=== PATIENT | female | born 1980 | race Caucasian/White ===

== ENCOUNTER 2018-06-17 12:47 | Emergency (ER) | payer MEDICAID ==
[2018-06-17 12:52] VITALS: BP 143/99
--- NOTE | 2018-06-17 13:55 | ER Document Report ---
ED Medical Screen (RME) - General Chief Complaint: Abdominal Pain Stated Complaint: STOMACH PAIN Time Seen by Provider: 06/17/18 13:50 TRAVEL OUTSIDE OF THE [place] IN LAST 30 DAYS: No - HPI Patient complains to provider of: Spotting with positive test Past Medical History Renal/ Medical History: Denies: Hx Peritoneal Dialysis Physical Exam - Vital signs Vitals: Temp Pulse Resp BP Pulse Ox 99.2 F 85 14 143/99 H 100 06/17/18 12:50 06/17/18 12:50 06/17/18 12:50 06/17/18 12:50 06/17/18 12:50 Course - Re-evaluation Re-evalutation: 06/17/18 13:54 This 37-year-old female presents for evaluation of and of unknown location, she has been seen twice by her fly maker with 2 ultrasounds transabdominally which did not demonstrate an obvious intrauterine . She continue to take test again which were positive today. Plan is for her to undergo evaluation via transvaginal ultrasound, will obtain hCG quantitative as well as Rh status. Patient's last menstrual period was in mid April. - Vital Signs Vital signs: Temp Pulse Resp BP Pulse Ox 99.2 F 85 14 143/99 H 100 06/17/18 12:50 06/17/18 12:50 06/17/18 12:50 06/17/18 12:50 06/17/18 12:50
--- NOTE | 2018-06-17 15:51 | RADIOLOGY REPORT (SQ) ---
EXAM DESCRIPTION: U/S OB TRANSVAGINAL W/O DOP COMPLETED DATE/TIME: 06/17/2018 3:32 pm REASON FOR STUDY: query ectopic COMPARISON: None. TECHNIQUE: Transvaginal static and realtime grayscale images acquired of the pelvis. Additional marck cted spectral and color Doppler images recorded. All images stored on PACs. [facility] CLINICAL DATES: LMP 04/30/2018. 6 weeks 6 days. LIMITATIONS: None. FINDINGS: No intrauterine gestational sac is seen. UTERUS: No masses or anomalies. 8.6 x 6.1 x 4.7 cm. CERVICAL LENGTH: 2.8 cm. Closed. RIGHT ADNEXA: Normal ovary with normal vascular flow. 3.5 x 3.3 x 2.7 cm. No adnexal free fluid. No adnexal masses. LEFT ADNEXA: Left ovary not seen. No adnexal free fluid. No adnexal masses. FREE FLUID: None. OTHER: Endometrium measures 5 mm in thickness. IMPRESSION: There is no intrauterine gestational sac. No ectopic is identified. However, the left ovary cannot be seen. Beta HCG suggests an early gestation. Follow-up as clinically indic ated. TECHNICAL DOCUMENTATION: JOB ID: [id number] [employer]- All Rights Reserved rev-04/03 Reading location - IP/workstation name: [email or web address]
[2018-06-17 17:29] LABS: APPEARANCE,URINE CLEAR; BILIRUBIN,URINE NEGATIVE (NEGATIVE); COLOR,URINE STRAW; GLUCOSE, URINE NEGATIVE (NEGATIVE); KETONES,URINE NEGATIVE (NEGATIVE); LEUKOCYTE ESTERASE,URINE NEGATIVE (NEGATIVE); NITRITE,URINE NEGATIVE (NEGATIVE); PROTEIN,URINE NEGATIVE (NEGATIVE); URINE SPECIFIC GRAVITY 1.003; UROBILINOGEN,URINE NEGATIVE mg/dL (<2.0)
--- NOTE | 2018-06-17 18:07 | ER Document Report ---
ED GI/ - General Chief Complaint: Abdominal Pain Stated Complaint: STOMACH PAIN Time Seen by Provider: 06/17/18 13:50 Mode of Arrival: Ambulatory Information source: Patient Notes: 37-year-old female presented to ED for complaint of abdominal pain and vaginal spotting with a positive test. She states she has been seen by the health department and at the center and she has not seen a positive on the ultrasound at the center. She states she has not been to women[facility] yet. She states her tenderness is on the right side with no tenderness to the left side. TRAVEL OUTSIDE OF THE [place] IN LAST 30 DAYS: No - HPI Patient complains to provider of: Pelvic pain, Onset: Other - Bleeding has been intermittent over the last week Timing/Duration: Intermittent Quality of pain: Cramping Severity at maximum: Moderate Severity in ED: Mild Pain Level: 1 Location: Pelvis - Right pelvic Vaginal bleeding (Compared to normal period): Spotting LMP: April 2018 : 4 Para: 2 ABO type: o Rh factor: + OB ultrasound done: Yes Associated symptoms: Other - Pelvic pain and vaginal bleeding Exacerbated by: Denies Relieved by: Denies Similar symptoms previously: Yes Recently seen / treated by doctor: Yes Past Medical History - General Information source: Patient - Social History Smoking Status: Never Smoker Cigarette use (# per day): No Chew tobacco use (# tins/day): No Smoking Education Provided: No Frequency of alcohol use: None Drug Abuse: None Lives with: Spouse/Significant other Family History: Reviewed & Not Pertinent Patient has suicidal ideation: No Patient has homicidal ideation: No - Past Medical History Cardiac Medical History: Reports: None Pulmonary Medical History: Reports: None EENT Medical History: Reports: None Neurological Medical History: Reports: None Endocrine Medical History: Reports: None Renal/ Medical History: Reports: None Malignancy Medical History: Reports: None GI Medical History: Reports: None Musculoskeletal Medical History: Reports None Skin Medical History: Reports None Psychiatric Medical History: Reports: None Traumatic Medical History: Reports: None Infectious Medical History: Reports: None Surgical Hx: Negative Past Surgical History: Reports: None Review of Systems - Review of Systems Constitutional: No symptoms reported EENT: No symptoms reported Cardiovascular: No symptoms reported Respiratory: No symptoms reported Gastrointestinal: Abdominal pain - Right pelvic and lower abdominal pain Genitourinary: No symptoms reported. denies: Frequency, Hematuria, Incontinence , Pain, Urgency Female Genitourinary: , Vaginal bleeding Musculoskeletal: No symptoms reported Skin: No symptoms reported Hematologic/Lymphatic: No symptoms reported Neurological/Psychological: No symptoms reported -: Yes All other systems reviewed and negative Physical Exam - Vital signs Vitals: Temp Pulse Resp BP Pulse Ox 99.2 F 85 14 143/99 H 100 06/17/18 12:50 06/17/18 12:50 06/17/18 12:50 06/17/18 12:50 06/17/18 12:50 Interpretation: Normal - General General appearance: Appears well, Alert - HEENT Head: Normocephalic, Atraumatic Eyes: Normal Pupils: PERRL - Respiratory Respiratory status: No respiratory distress Chest status: Nontender Breath sounds: Normal Chest palpation: Normal - Cardiovascular Rhythm: Regular Heart sounds: Normal auscultation Murmur: No - Abdominal Inspection: Normal Distension: No distension Bowel sounds: Normal Tenderness: Nontender. No: Tender, McBurney's point, Rodriguez's sign, Guarding, Rebound Organomegaly: No organomegaly. No: Hepatomegaly, Splenomegaly - Back Back: Normal, Nontender - Extremities General upper extremity: Normal inspection, Nontender, Normal color, Normal ROM , Normal temperature General lower extremity: Normal inspection, Nontender, Normal color, Normal ROM , Normal temperature, Normal weight bearing. No: Simone's sign - Neurological Neuro grossly intact: Yes Cognition: Normal Orientation: AAOx4 Patricia Coma Scale Eye Opening: Spontaneous Beaufort Coma Scale Verbal: Oriented Patricia Coma Scale Motor: Obeys Commands Beaufort Coma Scale Total: 15 Speech: Normal Motor strength normal: LUE, RUE, LLE, RLE Sensory: Normal - Psychological Associated symptoms: Normal affect, Normal mood - Skin Skin Temperature: Warm Skin Moisture: Dry Skin Color: Normal Course - Re-evaluation Re-evalutation: 06/17/18 18:12 Labs and ultrasound discussed with patient and written reports of labs and ultrasound given to patient. Patient denies any pain in any discomfort any tenderness at this time. There was no tenderness on exam. Patient was given a lab requisition to return in 48 hours to have her hCG repeated as there is no intrauterine noted on ultrasound. Patient is also been instructed to follow-up with [facility] IN[facility] if she continues to have a negative ultrasound and increase in hCG. Patient verbalized understanding of instructions. She states this is her first blood test that she has had. - Vital Signs Vital signs: Temp Pulse Resp BP Pulse Ox 99.2 F 85 14 143/99 H 100 06/17/18 12:50 06/17/18 12:50 06/17/18 12:50 06/17/18 12:50 06/17/18 12:50 - Laboratory Laboratory results interpreted by me: 06/17/18 06/17/18 14:10 14:10 Beta HCG, Quant 1159.50 H Urine Blood SMALL H - Diagnostic Test Radiology reviewed: Image reviewed, Reports reviewed Discharge - Discharge Clinical Impression: Abdominal pain affecting , Vaginal bleeding affecting early Condition: Stable Disposition: HOME, SELF-CARE Additional Instructions: : You are . care is best started as early in as possible. If you're unsure about continuing this , you should discuss this with your physician or with mathematician at [facility]. You should take only medications approved by your physician. Acetaminophen can safely be taken for minor pains. As a rule, medication for chronic conditions such as asthma or seizures can safely be continued. You should discuss with the physician every medicine you take. Any regular exercise program can be continued. Talk to your physician, however, before engaging in competitive or demanding sports. Alcohol, smoking, and "street drugs" are dangerous to your baby. Cocaine is especially dangerous. Don't use any illicit drugs! BLEEDING DURING EARLY : You have been evaluated for passing blood while . While we take this symptom very seriously, most women with your degree of bleeding will go on to have a perfectly normal baby. At this time, there is no indication that a miscarriage will occur. (A miscarriage occurs when the fetus is abnormal. There is no medicine or treatment to prevent it.) A more serious cause of bleeding is tubal (or ectopic) . An ultrasound usually can show whether the is in the uterus or in the tube. Sometimes in early , no fetus is seen. In this case, careful follow-up, including repeat blood tests and repeat ultrasound, is necessary. Do not douche or have sex for at least a week, or until OK'd by the doctor. Don't use tampons. Call the doctor or return for re-examination if there is an increase in bleeding or cramping, extreme weakness, fainting, new abdominal pain, fever, or passage of tissue. REPEAT BLOOD TEST: At this time, it is uncertain if you have a viable . During the first three months of , the hormone produced from the placenta will steadily rise, usually doubling in value every 2 - 3 days. In order to determine if your is viable and likely be succesful, a repeat of this blood test for the hormone is recommended in 2 - 3 days. An order for this test to be done as an outpatient is being provided. After you have this repeat test done, call your doctor or call us for the results. If the value of the test is increasing as would be expected in a normal , then your is likely to be ok. However, if the value of the test is declining, it will suggest something has happened with your and it will not likely be a successful . Come to the emergency room and tell them you were just getting lab follow-up labs for vaginal bleeding during . I have spoken with Susana OLMEDO and she stated if you have the lab called the emergency room she will give you your results of your hCG quant. You will still need to follow-up with [facility] like we discussed. [phone] FOLLOW-UP CARE: If you have been referred to a physician for follow-up care, call the physician s office for an appointment as you were instructed or within the next two days. If you experience worsening or a significant change in your symptoms (very heavy bleeding with large clots of blood, passage of tissue, more severe abdominal / pelvic pain or cramping, feeling faint or severe weakness, fever, etc.), notify the physician immediately or return to the Emergency Department at any time for re-evaluation. OBSTETRIC-GYNECOLOGIC (OB-ORAL AND MAXILLOFACIAL PATHOLOGIST) PHYSICIANS IN [place]: [facility] [address] [place] [address] [phone] For active duty and dependents diagnosed with a threatened or miscarriage, you should follow up in the following manner: Standard patients who have a local civilian provider should follow up with that provider. Patients of the Family Practice Clinic should call your Team Nurse at 8: 00 am the following morning for further instructions. If you are neither a Standard patient nor a patient of the Family Practice Clinic, you should follow up at the [facility] ([facility]) . Patients already enrolled in the [facility], Prime patients not assigned to the [facility], and Active Duty patients not assigned to [facility] should report to the [facility] Lab at 8:00 am the next morning that the [facility] is open and then you will be seen in the OB Clinic at 11:00 am. Forms: Elevated Blood Pressure, Follow-Up Laboratory Testing
== END 2018-06-17 18:22 | disposition home or self-care (01) ==
LOC: ER 12:47
DX: O26.899 Other specified pregnancy related conditions, unspecified trimester (principal); R10.2 Pelvic and perineal pain; O20.9 Hemorrhage in early pregnancy, unspecified; Z3A.00 Weeks of gestation of pregnancy not specified
CPT/HCPCS: 36415; 76817; 81001; 84702; 86900; 86901; 99284

== ENCOUNTER → 2018-06-19 | Outpatient (CLI) | payer MEDICAID | LOC: LAB 09:11 | PROVIDERS: ATTEND Nurse Practitioner Family | DX: O20.9 Hemorrhage in early pregnancy, unspecified (principal) | CPT/HCPCS: 36415; 84702 ==

== ENCOUNTER 2019-01-07 10:24 | Day surgery (SDC) | payer MEDICAID ==
[2019-01-07] MEDS ORDERED: MEPERIDINE HCL/PF INJ 25 MG/1 ML DISP.SYRIN IV PRN (11:16)
[2019-01-07] MEDS ORDERED: DIPHENHYDRAMINE HCL 50 MG/ML VIAL IV PRN (11:16)
[2019-01-07] MEDS ORDERED: FENTANYL CITRATE INJ/PF 100 MCG/2 ML AMPUL IV PRN ×3 (11:16)
[2019-01-07] MEDS ORDERED: MORPHINE SULFATE 10 MG/ML INJ IV PRN (11:16)
[2019-01-07] MEDS ORDERED: PROMETHAZINE HCL INJ 25 MG/1 ML VIAL IV PRN (11:16)
[2019-01-07 11:32] LABS: HEMOGLOBIN 13.7 g/dL (12.0-15.5); MEAN CORPUSCULAR HEMOGLOBIN 31.8 pg (27.0-33.4); MEAN CORPUSCULAR HGB CONC 36.1 g/dL (32.0-36.0); MEAN CORPUSCULAR VOLUME 88 fl (80-97); PLATELET COUNT 296 10^3/uL (150-450); RED BLOOD COUNT 4.32 10^6/uL (3.72-5.28); RED CELL DISTRIBUTION WIDTH 12.3 % (11.5-14.0); WHITE BLOOD COUNT 6.6 10^3/uL (4.0-10.5)
[2019-01-07] MEDS ORDERED: MIDAZOLAM 2 MG/2 ML INJ ONE (13:03)
[2019-01-07] MEDS ORDERED: PROPOFOL INJ 200 MG/20 ML VIAL IV ONE (13:03)
[2019-01-07] MEDS ORDERED: ONDANSETRON HCL INJ/PF 4 MG/2 ML SDV ONE (13:03)
[2019-01-07] MEDS ORDERED: FENTANYL CITRATE INJ/PF 100 MCG/2 ML AMPUL ONE (13:03)
[2019-01-07] MEDS ORDERED: ACETAMINOPHEN 1,000 MG/100 ML RTUPB IV ONE (13:03)
[2019-01-07] MEDS ORDERED: MORPHINE SULFATE 10 MG/ML INJ IM PRN (14:19)
[2019-01-07] MEDS ORDERED: IBUPROFEN 800 MG TABLET PO PRN (14:19)
[2019-01-07] MEDS ORDERED: OXYCODONE-ACETAMINOPHEN 5-325 MG TABLET PO PRN ×2 (14:20)
[2019-01-07] MEDS ORDERED: IBUPROFEN 800 MG TABLET ONE (14:23)
[2019-01-07] MEDS ORDERED: RINGERS SOLUTION,LACTATED 1,000 ML IV PRN (14:33)
--- NOTE | 2019-01-07 15:02 | OPERATIVE REPORT E ---
Operative Report NAME: STEPHANIE CASTELAN : 1980 AGE: 38Y DATE OF SURGERY: 01/07/2019 ROOM: PREOPERATIVE DIAGNOSIS: IUP at 8 weeks with missed . POSTOPERATIVE DIAGNOSIS: IUP at 8 weeks with missed . OPERATION: Suction D and C. SURGEON: ADE LINTON M.D. ANESTHESIA: Roscoe Fuentes M.D. with LMAC. FINDINGS: The uterus sounded to approximately 10 cm. COMPLICATIONS: None. ESTIMATED BLOOD LOSS: 100 mL. SPECIMENS REMOVED: Products of conception. PROCEDURE IN DETAIL: The patient was taken to the operating room, prepared and draped in a normal sterile fashion in the dorsal lithotomy position, and under sterile conditions an in-and-out cath was performed of approximately 50 mL of clear urine. A sterile speculum was placed in the vagina and the cervix was prepped with Betadine and grasped on the anterior lip with a single-tooth tenaculum. The uterus was then sounded to approximately 10 cm as indicated and the cervix was then dilated to accommodate an 8 mm curved curette. The curved curette was introduced and the contents were suctioned from the uterine cavity. A Kevorkian curette was then placed and grit was felt in approximately 360 degrees. Another pass with the suction device and then a further curetting ensured that the uterine contents were removed in entirety. The procedure was then concluded. Sponge, lap and needle counts were correct x2. Instruments were removed. The patient was taken to recovery in stable condition. DICTATING PHYSICIAN: ADE LINTON M.D. [id number] Y#: [id number] ID: [id number] JOB#: [id number] ACCT: [id number] cc:ADE LINTON M.D. >
[2019-01-07 15:35] VITALS: BP 123/74
== END 2019-01-07 15:20 | disposition home or self-care (01) ==
LOC: OROUT 10:24
PROVIDERS: ATTEND Obstetrics & Gynecology
DX: O02.1 Missed abortion (principal); I10 Essential (primary) hypertension; J45.909 Unspecified asthma, uncomplicated; Z14.1 Cystic fibrosis carrier
CPT/HCPCS: 59820; 36415; 85027; 88305 ×2; J2250; J3490; J3010; J2405; J2704; J0131; 1965

== ENCOUNTER 2019-12-01 18:02 | Inpatient (IN) | payer MEDICAID ==
[2019-12-01] MEDS ORDERED: RINGERS SOLUTION,LACTATED 1,000 ML IV ONE (18:04)
[2019-12-01] MEDS ORDERED: RINGERS SOLUTION,LACTATED 1,000 ML IV PRN (18:04)
[2019-12-01 18:41] LABS: ABSOLUTE EOSINOPHILS # (AUTO) 0.1 10^3/uL (0.0-0.6); ABSOLUTE LYMPHOCYTES (AUTO) 1.7 10^3/uL (0.5-4.7); ABSOLUTE NEUT (AUTO) 7.4 10^3/uL (1.7-8.2); BASOPHILS % (AUTO) 0.4 % (0-2); EOSINOPHILS % (AUTO) 0.7 % (0-6); HEMATOCRIT 36.5 % (36.0-47.0); HEMOGLOBIN 13.1 g/dL (12.0-15.5); LYMPHOCYTES % (AUTO) 16.4 % (13-45); MEAN CORPUSCULAR HEMOGLOBIN 31.9 pg (27.0-33.4); MEAN CORPUSCULAR HGB CONC 35.9 g/dL (32.0-36.0); MEAN CORPUSCULAR VOLUME 89 fl (80-97); MONOCYTES % (AUTO) 10.1 % (3-13); PLATELET COUNT 237 10^3/uL (150-450); RED BLOOD COUNT 4.11 10^6/uL (3.72-5.28); RED CELL DISTRIBUTION WIDTH 13.7 % (11.5-14.0); SEGMENTED NEUTROPHILS % (AUTO) 72.4 % (42-78); TOTAL CELLS COUNTED % (AUTO) 100 %; WHITE BLOOD COUNT 10.2 10^3/uL (4.0-10.5)
[2019-12-01 18:58] LABS: ALBUMIN 3.4 g/dL (3.5-5.0); ALKALINE PHOSPHATASE 178 U/L (38-126); ANION GAP 8 (5-19); ASPARTATE AMINO TRANSFERASE 21 U/L (14-36); BILIRUBIN,DIRECT 0.2 mg/dL (0.0-0.4); BILIRUBIN,TOTAL 0.3 mg/dL (0.2-1.3); BLOOD UREA NITROGEN 11 mg/dL (7-20); CALCIUM 9.4 mg/dL (8.4-10.2); CARBON DIOXIDE 19 mmol/L (22-30); CHLORIDE 108 mmol/L (98-107); GLUCOSE 93 mg/dL (75-110); POTASSIUM 4.1 mmol/L (3.6-5.0); TOTAL PROTEIN 6.6 g/dL (6.3-8.2); URIC ACID 4.5 mg/dL (2.5-7.0)
[2019-12-01 19:37] LABS: APPEARANCE,URINE CLOUDY; BILIRUBIN,URINE NEGATIVE (NEGATIVE); COLOR,URINE STRAW; GLUCOSE, URINE NEGATIVE (NEGATIVE); KETONES,URINE NEGATIVE (NEGATIVE); LEUKOCYTE ESTERASE,URINE NEGATIVE (NEGATIVE); NITRITE,URINE NEGATIVE (NEGATIVE); PROTEIN,URINE NEGATIVE (NEGATIVE); URINE SPECIFIC GRAVITY 1.004; UROBILINOGEN,URINE NEGATIVE mg/dL (<2.0)
[2019-12-01 19:54] LABS: URINE AMPHETAMINES SCREEN NEGATIVE; URINE BARBITURATES SCREEN NEGATIVE; URINE BENZODIAZEPINES SCREEN NEGATIVE; URINE COCAINE SCREEN NEGATIVE; URINE MARIJUANA (THC) SCREEN NEGATIVE; URINE METHADONE SCREEN NEGATIVE; URINE PHENCYCLIDINE SCREEN NEGATIVE
[2019-12-01 20:01] LABS: UR PRO/CREAT RATIO RESULT 0.6 mg/mg (0.0-0.2); URINE CREATININE 25.3 mg/dL (16-327); URINE PROTEIN 15.1 mg/dL (<12)
[2019-12-01] MEDS ORDERED: OXYTOCIN 10 UNIT/ML VIAL ONE (21:01)
[2019-12-01] MEDS ORDERED: LIDOCAINE 1% INJ-PF (10 MG/ML) 30 ML SDV ONE (21:02)
[2019-12-01] MEDS ORDERED: OXYTOCIN/NORMAL SALINE 20 UNIT/1,000 ML RTUINJ ONE (21:02)
[2019-12-01] MEDS ORDERED: MISOPROSTOL 0.2 MG TABLET ONE (21:02)
[2019-12-01] MEDS ORDERED: OXYTOCIN/NORMAL SALINE 20 UNIT/1,000 ML RTUINJ IV PRN (21:15)
--- NOTE | 2019-12-01 21:20 | Admission Physical ---
Datetime Report Generated by CPN: 12/01/2019 21:20 CURRENT ADMISSION Chief Complaint: Uterine Contractions; Scheduled Induction of Labor Indication for Induction: Chronic Secondary HTN (Specify Cause) Admit Impression : Term, Intrauterine Admit Plan: Admit to Unit; Initiate Labor Induction Protocol ALLERGIES Medication Allergies: No Medication Allergies: No Known Allergies (12/01/2019) Latex: No Latex Allergies OBSTETRICAL HISTORY EDC: 12/15/2019 00:00 : 7 Para: 2 Livin Gestational Diabetes: Yes (Annotations: Data stored by N on behalf of user) Rh Sensitization: No Incompetent Cervix: No CHARISSA: No Infertility: No ART Treatment: No Uterine Anomaly: No IUGR: No Hx Previous C/S: No Macrosomia: No Hx Loss/Stillborn: No PIH: No Hx : No Placenta Previa/Abruption: No Depression/PP Depression: No PTL/PROM: No Post Hemorrhage: No Current Procedures: Ultrasound Obstetrical History Comments: G1- SAB G2- SAB G3- SAB G4- 40w G5- SAB G6- 37wks SEE RECORDS Alcohol: No Marijuana : No Cocaine: No Other Illicit Drugs: No Cigarettes: Never Smoker. 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 LEAP surgery INFECTIOUS HISTORY Gonorrhea: No Genital Herpes: No Chlamydia: No Tuberculosis: No Syphilis: No Hepatitis: No HIV/AIDS Exposure: No Rash or Viral Illness: No HPV: No PHYSICAL EXAM General: Normal HEENT: Normal Neurologic: Normal Thyroid: Deferred Heart: Normal Lungs: Normal Breast: Deferred Back: Normal Abdomen: Normal Genitourinary Exam: Normal Extremities: Normal DTRs: Normal Pelvic Type: Adequate Vital Signs: Reviewed VAGINAL EXAM Dilatation: 1 Effacement: 50 Station: -2 Contraction Comments: q 2-3 MEMBRANES Membranes: Intact FETUS A EGA: 38.0 Monitoring: External US FHR- Baseline: 120 Variability: Moderate 6-25bpm Accelerations: 15X15 Presentation: Vertex Admit Comment: 39yo at 38+0ega presents for IOL due to CHTN. She is on labetolol and has good control of BPs. AMA, CHTN, Asthma, Cystic fibrosis carrier - FOB negative. GDM - A1. Desires BTL - title XX signed. EFW 7#1oz on 11/25. vertex. Admit to labor and delivery. GBS negative - no abx needed. Cooks catheter for IOL with pitocin low dose protocol. PLANS FOR LABOR AND DELIVERY Labor and Delivery: None Pain Management: Natural Feeding Preference: Breast Benefit of Breast Feed Discussed: Yes Circumcision: Yes INFORMED CONSENT Informed Consent Obtained: Vaginal Delivery; Induction of Labor; Risks, Benefits and Alternatives Discussed Signature: with User ID: [email or web address]
[2019-12-02] MEDS ORDERED: MORPHINE SULFATE 10 MG/ML INJ ONE (12:12)
[2019-12-02] MEDS ORDERED: DIBUCAINE 1% OINTMENT 28 GM TP PRN (12:45)
[2019-12-02] MEDS ORDERED: DIPH/PERTUSS(ACELL)/TETANUS VAC/PF 0.5 ML SYR (>=10YO) IM PRN ×2 (12:45→14:30)
[2019-12-02] MEDS ORDERED: BENZOCAINE/MENTHOL AEROSOL SPRAY 56 ML TOP PRN (12:45)
[2019-12-02] MEDS ORDERED: ACETAMINOPHEN 650 MG SUPP.RECT PR PRN (12:45)
[2019-12-02] MEDS ORDERED: GLYCERIN/WITCH HAZEL LEAF 1 EACH MED..WIPE TP PRN (12:45)
[2019-12-02] MEDS ORDERED: PROMETHAZINE HCL INJ 25 MG/1 ML VIAL IV PRN ×2 (12:45→14:30)
[2019-12-02] MEDS ORDERED: MEASLES,MUMPS&RUBELLA VACC/PF 0.5 ML VIAL SUBCUT PRN ×2 (12:45→14:30)
[2019-12-02] MEDS ORDERED: MAGNESIUM HYDROXIDE SUSP 30 ML UDCUP PO PRN (12:45)
[2019-12-02] MEDS ORDERED: NA PHOS,M-B/NA PHOS,DI-BA (ADULT) 133 ML ENEMA PR PRN (12:45)
[2019-12-02] MEDS ORDERED: PSEUDOEPHEDRINE HCL 30 MG TABLET PO PRN (12:45)
[2019-12-02] MEDS ORDERED: PROMETHAZINE HCL 25 MG TABLET PO PRN (12:45)
[2019-12-02] MEDS ORDERED: PROMETHAZINE HCL 25 MG SUPP.RECT PR PRN (12:45)
[2019-12-02] MEDS ORDERED: DIPHENHYDRAMINE HCL 25 MG CAPSULE PO PRN (12:45)
[2019-12-02] MEDS ORDERED: ACETAMINOPHEN WITH CODEINE #3 TABLET PO PRN ×2 (12:45)
[2019-12-02] MEDS ORDERED: OXYTOCIN/NORMAL SALINE 20 UNIT/1,000 ML RTUINJ IV PRN (12:45)
[2019-12-02] MEDS ORDERED: ZOLPIDEM TARTRATE 5 MG TABLET PO PRN (12:45)
[2019-12-02] MEDS ORDERED: MISOPROSTOL 0.2 MG TABLET PR ONE (12:46)
[2019-12-02] MEDS ORDERED: IBUPROFEN 800 MG TABLET ONE (14:34)
--- NOTE | 2019-12-02 14:35 | Delivery Summary ---
Del Sum A-C Datetime Report Generated by CPN: 12/02/2019 14:34 DELIVERY PERSONNEL DELIVERY PERSONNEL: [id number] Delivery Doctor:: Mica Rivas CNM Nurse County Treasurer Certified:: Mica Rivas CNM Labor and Delivery Nurse:: PAULA Reyez Labor and Delivery Nurse:: PAULA Sanchez Player Manager/SENIOR UI DESIGNER: Ambar Hurt, SOCIAL SERVICES DESIGNEE Player Manager/SENIOR UI DESIGNER: Chioma Syed CNA II MATERNAL INFORMATION Delivery Anesthesia: None Medications After Delivery: Pitocin Bolus-Please Comment; Cytotec 1000mcg Per Rectum/Vagina Meds After Delivery Comment: Pitocin 20 units in 1000 ml nss open for bolus Delivery QBL: 450 Maternal Complications: Other Complication Details: CHTN Provider Comments: DIRECT OA VIABLE MALE INFANT WITH SPONTANEOUS CRY. CORD DOUBLE CLAMPED AND CUT. SPONTANEOUS INTACT PLACENTA WITH 3VC. NO LACERATIONS. MOTHER AND INFANT STABLE IN L_D #4. CYTOTEC 1000MCG CT GIVEN FOR UTERINE ATONY. BLEEDING STABLE. LABOR SUMMARY EDC: 12/15/2019 00:00 No. Babies in Womb: 1 Attempted: No Labor Anesthesia: IV Sedation LABOR INFORMATION Reason for Induction: Not Applicable Onset of Labor: 12/02/2019 04:30 Complete Dilatation: 12/02/2019 12:21 Oxytocin: Induction Group B Beta Strep: negative Steroids Given: None Reason Steroids Not Administered: Not Applicable MEMBRANES Membranes Rupture Method: Artificial Rupture of Membranes: 12/02/2019 11:25 Length of Rupture (hr): 1.12 Amniotic Fluid Color: Clear Amniotic Fluid Amount: Small Amniotic Fluid Odor: Normal STAGES OF LABOR Stage 1 hr: 7 Stage 1 min: 51 Stage 2 hr: 0 Stage 2 min: 11 Stage 3 hr: 0 Stage 3 min: 4 Total Time in Labor hr: 8 Total Time in Labor min: 6 VAGINAL DELIVERY Episiotomy: None Laceration #1: None Laceration Extension #1: N/A Laceration Repair: Not Applicable Sponge Count Correct: N/A Sharps Count Correct: N/A CSECTION DELIVERY Primary Indication: N/A Secondary Indication: N/A CSection Incidence: N/A Labor: N/A Elective: N/A CSection Incision: N/A BABY A INFORMATION Delivery Date/Time: 12/02/2019 12:32 Method of Delivery: Vaginal Born in Route : No : N/A Forceps: N/A Vacuum Extraction: N/A Shoulder Dystocia : No PRESENTATION/POSITION BABY A Presentation: Cephalic Cephalic Presentation: Vertex Vertex Position: Right Occipital Anterior Breech Presentation: N/A PLACENTA INFORMATION BABY A Placenta Delivery Time : 12/02/2019 12:36 Placenta Method of Delivery: Spontaneous Placenta Status: Delivered SCORES BABY A Heart Rate 1 min: >100 bpm Resp Effort 1 min: Good Cry Reflex Irritability 1 min: Cough or Sneeze or Pulls Away Muscle Tone 1 min: Active Motion Color 1 min: Blue/Pale Resuscitation Effort 1 min: Tactile Stimulation SCORE 1 MIN: 8 Heart Rate 5 min: >100 bpm Resp Effort 5 min: Good Cry Reflex Irritability 5 min: Cough or Sneeze or Pulls Away Muscle Tone 5 min: Active Motion Color 5 min: Body Jenkins, Extremities Blue Resuscitation Effort 5 min: N/A SCORE 5 MIN: 9 Resuscitation Effort 10 min: N/A INFORMATION BABY A Gestational Age at Delivery: 38.1 Gestational Status: Early Term- 37- 38.6 Weeks Outcome : Liveborn Condition : Stable Sex: Male IDENTIFICATION BABY A Verification Date/Time: 12/02/2019 12:45 ID Band Number: [id number] Mother's Name Verified: Yes Infant RN Verifying : Brynn Camp RNC Additional Verifying Personnel: Leda Kelsie RN-C WEIGHT/LENGTH BABY A Birthweight (gm): 3750 Infant Weight (lb): 8 Infant Weight (oz): 4 Length (in): 20.25 Infant Length (cm): 51.44 CORD INFORMATION BABY A No. Cord Vessels: 3 Nuchal Cord : N/A Cord Blood Taken: Yes-For Eval (Mom's Blood Type - or O+) Infant Suction: None ASSESSMENT BABY A Infant Complications: None Physical Findings at Delivery: Within Normal Limits Infant Respirations: Appears Normal Skin to Skin: Yes Skin to Skin Time (min): 45 Orthotist/Prosthetist/ALS Called : No Infant Care By: C Chadwick RN Transferred To: Remains with Mother BABY B INFORMATION : N/A SIGNATURES Assignment: Stephani Johns MD Signature: with User ID: [email or web address] : with User ID: [email or web address] : I was personally available for consultation and serving as supervising physician for the MLP.
[2019-12-02] MEDS: IBUPROFEN 800 MG TABLET PO SCH ×2 (14:37→22:43)
[2019-12-02] MEDS: DOCUSATE SODIUM 100 MG CAPSULE PO SCH (17:37)
[2019-12-02] MEDS: FERROUS SULFATE 325 MG TABLET PO SCH (17:37)
[2019-12-02] MEDS: LABETALOL HCL 200 MG TABLET PO SCH (22:44)
[2019-12-02] MEDS: FAMOTIDINE 20 MG TABLET PO SCH (22:44)
[2019-12-03] MEDS: IBUPROFEN 800 MG TABLET PO SCH ×3 (06:35→21:49)
[2019-12-03 07:05] LABS: HEMATOCRIT 35.8 % (36.0-47.0); HEMOGLOBIN 12.7 g/dL (12.0-15.5); MEAN CORPUSCULAR HEMOGLOBIN 31.8 pg (27.0-33.4); MEAN CORPUSCULAR HGB CONC 35.4 g/dL (32.0-36.0); MEAN CORPUSCULAR VOLUME 90 fl (80-97); PLATELET COUNT 199 10^3/uL (150-450); RED BLOOD COUNT 3.98 10^6/uL (3.72-5.28); RED CELL DISTRIBUTION WIDTH 13.6 % (11.5-14.0); WHITE BLOOD COUNT 13.2 10^3/uL (4.0-10.5)
[2019-12-03] MEDS: FERROUS SULFATE 325 MG TABLET PO SCH ×2 (09:16→17:17)
[2019-12-03] MEDS: LABETALOL HCL 200 MG TABLET PO SCH ×2 (09:16→21:50)
[2019-12-03] MEDS: SENNOSIDES/DOCUSATE 8.6-50 MG 1 EACH TABLET PO SCH (09:17)
[2019-12-03] MEDS: PRENATAL VITAMIN W DHA CAPSULE PO SCH (09:17)
[2019-12-03] MEDS: DOCUSATE SODIUM 100 MG CAPSULE PO SCH ×2 (09:17→17:17)
[2019-12-03] MEDS: FAMOTIDINE 20 MG TABLET PO SCH ×2 (09:21→21:49)
--- NOTE | 2019-12-03 10:19 | PDOC PROGRESS REPORT ---
Subjective-OB Progress Note for:: 12/03/19 - PP day #2, doing well, no complaints today, s/p IOL for GHTN, O+, rubella immune, Physical Exam (OB) Vital Signs: Temp Pulse Resp BP Pulse Ox 98.0 F 64 15 110/60 99 12/03/19 07:46 12/03/19 07:46 12/03/19 07:46 12/03/19 07:46 12/03/19 07:46 Intake & Output 12/02/19 12/03/19 12/04/19 06:59 06:59 06:59 Weight 95.3 kg - General General Appearance: Appears well, Alert - PIH/Pre-Eclampsia DTR's: 1 + Clonus: Negative Headache: Absent Epigastric Pain: No Visual Changes: No - Lochia Lochia Amount: Scant < 10 ml Lochia Color: Rubra/Red - Abdomen Description: Soft Hernia Present: No Fundal Description: Firm, Midline Fundal Height: u/u - u/2 - Respiratory Respiratory Status: No respiratory distress - Abdominal Distension: No distension Tenderness: Nontender - Genitourinary Genitourinary Note: voiding - Extremities Upper extremity: Normal inspection Lower extremities: Normal inspection - Neurological Cognition: Normal Orientation: AAOx4 - Psychological Associated symptoms: Normal affect, Normal mood - Skin Skin Temperature: Warm Skin Moisture: Dry Objective-Diagnostic Laboratory: 12/03/19 06:44 12/01/19 18:20 12/03/19 06:44 WBC 13.2 H RBC 3.98 Hgb 12.7 Hct 35.8 L MCV 90 MCH 31.8 MCHC 35.4 RDW 13.6 Plt Count 199 Assessment and Plan(PN) - Assessment and Plan (1) (normal spontaneous vaginal delivery) Is this a current diagnosis for this admission?: Yes (2) Advanced maternal age affecting , antepartum Is this a current diagnosis for this admission?: Yes (3) Asthma affecting , antepartum Is this a current diagnosis for this admission?: Yes (4) Chronic hypertension affecting Is this a current diagnosis for this admission?: Yes (5) Encounter for induction of labor Is this a current diagnosis for this admission?: Yes Plan:: Watch BP, ambulation encouraged, routine PP orders - Time Spent with Patient Time with patient: Less than 15 minutes Medications reviewed and adjusted accordingly: Yes - Disposition Anticipated Discharge: Home Within: within 24 hours
[2019-12-04] MEDS: IBUPROFEN 800 MG TABLET PO SCH (05:18)
--- NOTE | 2019-12-04 09:51 | PDOC DISCHARGE SUMMARY ---
Impression - Admit/DC Date/PCP Admission Date/Primary Care Provider: 12/01/19 18:02 ESTEFANÍA CAMPBELL MD Discharge Date: 12/04/19 - PP Day #2, doing well, denies complaints, IOL for GHTN, on PO Labetalol, O+, Rubella immune, - Discharge Diagnosis (1) (normal spontaneous vaginal delivery) Is this a current diagnosis for this admission?: Yes (2) Advanced maternal age affecting , antepartum Is this a current diagnosis for this admission?: Yes (3) Asthma affecting , antepartum Is this a current diagnosis for this admission?: Yes (4) Chronic hypertension affecting Is this a current diagnosis for this admission?: Yes (5) Encounter for induction of labor Is this a current diagnosis for this admission?: Yes - Additional Information Resuscitation Status: Full Code Discharge Diet: As Tolerated, Regular Discharge Activity: Activity As Tolerated, No Lifting Over 10 Pounds, Pelvic Rest Referrals: [facility] [Provider Group] Prescriptions: Ibuprofen [Motrin 800 mg Tablet] 800 mg PO Q8 #60 tablet Home Medications: Labetalol HCl [Trandate] 200 mg PO BID 12/01/19 Pnv No.95/Ferrous Fum/Folic AC [ Multivitamin Tablet] 1 tab PO DAILY 12/01/19 Ibuprofen [Motrin 800 mg Tablet] 800 mg PO Q8 #60 tablet 12/04/19 HPI Reason(s) for Admission: Induction of Labor, [facility] Procedures: NST, Ultrasound Intrapartum Procedure(s): Spontaneous Vaginal Delivery Hospital Course Hospital Course: routine Results Laboratory Results: WBC 13.2 10^3/uL (4.0-10.5) H 12/03/19 06:44 RBC 3.98 10^6/uL (3.72-5.28) 12/03/19 06:44 Hgb 12.7 g/dL (12.0-15.5) 12/03/19 06:44 Hct 35.8 % (36.0-47.0) L 12/03/19 06:44 MCV 90 fl (80-97) 12/03/19 06:44 MCH 31.8 pg (27.0-33.4) 12/03/19 06:44 MCHC 35.4 g/dL (32.0-36.0) 12/03/19 06:44 RDW 13.6 % (11.5-14.0) 12/03/19 06:44 Plt Count 199 10^3/uL (150-450) 12/03/19 06:44 Lymph % (Auto) 16.4 % (13-45) 12/01/19 18:20 [place] % (Auto) 10.1 % (3-13) 12/01/19 18:20 Eos % (Auto) 0.7 % (0-6) 12/01/19 18:20 Baso % (Auto) 0.4 % (0-2) 12/01/19 18:20 Absolute Neuts (auto) 7.4 10^3/uL (1.7-8.2) 12/01/19 18:20 Absolute Lymphs (auto) 1.7 10^3/uL (0.5-4.7) 12/01/19 18:20 Absolute Monos (auto) 1.0 10^3/uL (0.1-1.4) 12/01/19 18:20 Absolute Eos (auto) 0.1 10^3/uL (0.0-0.6) 12/01/19 18:20 Absolute Basos (auto) 0.0 10^3/uL (0.0-0.2) 12/01/19 18:20 Seg Neutrophils % 72.4 % (42-78) 12/01/19 18:20 Sodium 135.4 mmol/L (137-145) L 12/01/19 18:20 Potassium 4.1 mmol/L (3.6-5.0) 12/01/19 18:20 Chloride 108 mmol/L (98-107) H 12/01/19 18:20 Carbon Dioxide 19 mmol/L (22-30) L 12/01/19 18:20 Anion Gap 8 (5-19) 12/01/19 18:20 BUN 11 mg/dL (7-20) 12/01/19 18:20 Creatinine 0.75 mg/dL (0.52-1.25) 12/01/19 18:20 Est GFR ( Amer) > 60 (>60) 12/01/19 18:20 Est GFR (MDRD) Non-Af > 60 (>60) 12/01/19 18:20 Glucose 93 mg/dL (75-110) 12/01/19 18:20 Uric Acid 4.5 mg/dL (2.5-7.0) 12/01/19 18:20 Calcium 9.4 mg/dL (8.4-10.2) 12/01/19 18:20 Total Bilirubin 0.3 mg/dL (0.2-1.3) 12/01/19 18:20 Direct Bilirubin 0.2 mg/dL (0.0-0.4) 12/01/19 18:20 Neonat Total Bilirubin Not Reportable 12/01/19 18:20 Neonat Direct Bilirubin Not Reportable 12/01/19 18:20 Neonat Indirect Bili Not Reportable 12/01/19 18:20 AST 21 U/L (14-36) 12/01/19 18:20 ALT 14 U/L (<35) 12/01/19 18:20 Alkaline Phosphatase 178 U/L (38-126) H 12/01/19 18:20 Lactate Dehydrogenase 152 U/L (120-246) 12/01/19 18:20 Total Protein 6.6 g/dL (6.3-8.2) 12/01/19 18:20 Albumin 3.4 g/dL (3.5-5.0) L 12/01/19 18:20 Urine Color STRAW 12/01/19 18:11 Urine Appearance CLOUDY 12/01/19 18:11 Urine pH 7.0 (5.0-9.0) 12/01/19 18:11 Ur Specific [place] 1.004 12/01/19 18:11 Urine Protein NEGATIVE mg/dL (NEGATIVE) 12/01/19 18:11 Urine Glucose (UA) NEGATIVE mg/dL (NEGATIVE) 12/01/19 18:11 Urine Ketones NEGATIVE mg/dL (NEGATIVE) 12/01/19 18:11 Urine Blood NEGATIVE (NEGATIVE) 12/01/19 18:11 Urine Nitrite NEGATIVE (NEGATIVE) 12/01/19 18:11 Urine Bilirubin NEGATIVE (NEGATIVE) 12/01/19 18:11 Urine Urobilinogen NEGATIVE mg/dL (<2.0) 12/01/19 18:11 Ur Leukocyte Esterase NEGATIVE (NEGATIVE) 12/01/19 18:11 Urine WBC (Auto) 1 /HPF 12/01/19 18:11 Urine RBC (Auto) 0 /HPF 12/01/19 18:11 Urine Bacteria (Auto) TRACE /HPF 12/01/19 18:11 Squamous Epi Cells Auto 2 /HPF 12/01/19 18:11 Urine Mucus (Auto) RARE /LPF 12/01/19 18:11 Urine Creatinine 25.3 mg/dL (16-327) 12/01/19 18:11 Protein/Creatinin Ratio 0.6 mg/mg (0.0-0.2) H 12/01/19 18:11 Urine Total Protein 15.1 mg/dL (<12) H 12/01/19 18:11 Urine Ascorbic Acid NEGATIVE (NEGATIVE) 12/01/19 18:11 Membranes Rupture NEGATIVE (NEGATIVE) 12/01/19 19:40 Urine Opiates Screen NEGATIVE 12/01/19 18:11 Urine Methadone Screen NEGATIVE 12/01/19 18:11 Ur Barbiturates Screen NEGATIVE 12/01/19 18:11 Ur Phencyclidine Scrn NEGATIVE 12/01/19 18:11 Ur Amphetamines Screen NEGATIVE 12/01/19 18:11 U Benzodiazepines Scrn NEGATIVE 12/01/19 18:11 Urine Cocaine Screen NEGATIVE 12/01/19 18:11 U Marijuana (THC) Screen NEGATIVE 12/01/19 18:11 RPR NONREACTIVE (NONREACTIVE) 12/01/19 18:20 Blood Type O POSITIVE 12/01/19 18:20 Antibody Screen NEGATIVE 12/01/19 18:20 Plan Health Concerns: watch PP blood pressure Plan of Treatment: d/c to home. F/up with [facility] in one week for BP check Time Spent: Less than 30 Minutes
[2019-12-04] MEDS: DOCUSATE SODIUM 100 MG CAPSULE PO SCH (10:43)
[2019-12-04] MEDS: FERROUS SULFATE 325 MG TABLET PO SCH (10:43)
[2019-12-04] MEDS: SENNOSIDES/DOCUSATE 8.6-50 MG 1 EACH TABLET PO SCH (10:43)
[2019-12-04] MEDS: PRENATAL VITAMIN W DHA CAPSULE PO SCH (10:43)
[2019-12-04] MEDS: LABETALOL HCL 200 MG TABLET PO SCH (11:14)
[2019-12-04] MEDS: FAMOTIDINE 20 MG TABLET PO SCH (11:15)
[2019-12-04 11:58] VITALS: BP 130/69
== END 2019-12-04 12:51 | disposition home or self-care (01) | DRG 807 ==
LOC: LR 18:02 → 2S 12-02 14:45
PROVIDERS: ADMIT Student in an Organized Health Care Education/Training Program; ATTEND Obstetrics & Gynecology
PROC: 10E0XZZ Delivery of Products of Conception, External Approach (ICD-10-PCS; principal; 2019-12-02)
DX: O10.92 Unspecified pre-existing hypertension complicating childbirth (principal); Z37.0 Single live birth; O24.420 Gestational diabetes mellitus in childbirth, diet controlled; O99.52 Diseases of the respiratory system complicating childbirth; J45.909 Unspecified asthma, uncomplicated; O62.2 Other uterine inertia; Z14.1 Cystic fibrosis carrier; Z3A.38 38 weeks gestation of pregnancy
CPT/HCPCS: 36415; 80053; 80307; 81001; 82570; 83615; 84112; 84156; 84550; 85025; 85027; 86592; 86850; 86900; 86901; J2270; J2590; J3490

== ENCOUNTER 2020-01-31 07:09 | Day surgery (SDC) | payer MEDICAID ==
[2020-01-25 11:29] LABS: HEMATOCRIT 39.8 % (36.0-47.0); HEMOGLOBIN 14.3 g/dL (12.0-15.5); MEAN CORPUSCULAR HEMOGLOBIN 30.9 pg (27.0-33.4); MEAN CORPUSCULAR HGB CONC 36.1 g/dL (32.0-36.0); MEAN CORPUSCULAR VOLUME 86 fl (80-97); PLATELET COUNT 279 10^3/uL (150-450); RED BLOOD COUNT 4.64 10^6/uL (3.72-5.28)
[2020-01-25 11:34] LABS: APPEARANCE,URINE CLEAR; BILIRUBIN,URINE NEGATIVE (NEGATIVE); COLOR,URINE STRAW; GLUCOSE, URINE NEGATIVE (NEGATIVE); KETONES,URINE NEGATIVE (NEGATIVE); LEUKOCYTE ESTERASE,URINE TRACE (NEGATIVE); NITRITE,URINE NEGATIVE (NEGATIVE); PROTEIN,URINE NEGATIVE (NEGATIVE); URINE SPECIFIC GRAVITY 1.006; UROBILINOGEN,URINE NEGATIVE mg/dL (<2.0)
[2020-01-25 11:53] LABS: ANION GAP 10 (5-19); BLOOD UREA NITROGEN 13 mg/dL (7-20); CALCIUM 9.9 mg/dL (8.4-10.2); CARBON DIOXIDE 26 mmol/L (22-30); CHLORIDE 104 mmol/L (98-107); GLUCOSE 92 mg/dL (75-110); POTASSIUM 4.7 mmol/L (3.6-5.0)
[~2020-01-31 07:09] MED LIST: LACTATED RINGERS 1000 ML IV PRN; LIDOCAINE 0.5% INJ-PF (5 MG/ML) 50 ML SDV SUBCUT PRN
[2020-01-31] MEDS ORDERED: HYDROMORPHONE HCL INJ/PF 2 MG/ML AMPULE ONE ×2 (07:10→07:15)
[2020-01-31] MEDS ORDERED: KETOROLAC TROMETHAMINE 60 MG/2 ML SDV ONE (07:10)
[2020-01-31] MEDS ORDERED: FENTANYL CITRATE INJ/PF 100 MCG/2 ML AMPUL ONE (07:11)
[2020-01-31] MEDS ORDERED: DEXAMETHASONE SOD PHOSPHATE INJ 4 MG/1 ML VIAL ONE (07:11)
[2020-01-31] MEDS ORDERED: MIDAZOLAM 2 MG/2 ML INJ ONE (07:11)
[2020-01-31] MEDS ORDERED: ONDANSETRON HCL INJ/PF 4 MG/2 ML SDV ONE (07:11)
[2020-01-31] MEDS ORDERED: PROPOFOL INJ 200 MG/20 ML VIAL IV ONE (07:11)
[2020-01-31] MEDS ORDERED: LIDOCAINE 0.5% INJ-PF (5 MG/ML) 50 ML SDV ONE (07:13)
[2020-01-31] MEDS ORDERED: ONDANSETRON HCL INJ/PF 4 MG/2 ML SDV IV PRN (09:32)
[2020-01-31] MEDS ORDERED: MORPHINE SULFATE 10 MG/ML INJ IV PRN (09:32)
[2020-01-31] MEDS ORDERED: PROMETHAZINE HCL INJ 25 MG/1 ML VIAL IV PRN (09:32)
[2020-01-31] MEDS ORDERED: MEPERIDINE HCL/PF INJ 25 MG/1 ML DISP.SYRIN IV PRN (09:32)
[2020-01-31] MEDS ORDERED: DIPHENHYDRAMINE HCL 50 MG/ML VIAL IV PRN (09:32)
[2020-01-31] MEDS ORDERED: FENTANYL CITRATE INJ/PF 100 MCG/2 ML AMPUL IV PRN ×3 (09:32)
[2020-01-31] MEDS ORDERED: RINGERS SOLUTION,LACTATED 1,000 ML IV PRN (10:11)
[2020-01-31] MEDS ORDERED: OXYCODONE-ACETAMINOPHEN 5-325 MG TABLET PO PRN ×2 (10:11)
[2020-01-31] MEDS ORDERED: IBUPROFEN 800 MG TABLET PO PRN (10:11)
[2020-01-31] MEDS ORDERED: KETOROLAC TROMETHAMINE INJ/PF 30 MG/1 ML SDV IV PRN (10:11)
--- NOTE | 2020-01-31 10:16 | Operative Report ---
Operative Report DATE OF SURGERY: 01/31/20 PREOPERATIVE DIAGNOSIS: Patient desires tubal ligation POSTOPERATIVE DIAGNOSIS: Laparoscopic bilateral tubal cautery with Michael OPERATION: Laparoscopic bilateral tubal cautery with Michael SURGEON: HELDER BUNN ANESTHESIA: GA TISSUE REMOVED OR ALTERED: Fallopian tubes COMPLICATIONS: None ESTIMATED BLOOD LOSS: None INTRAOPERATIVE FINDINGS: Normal uterus tubes and ovaries PROCEDURE: Patient was taken the OR and placed in supine position. General anesthesia was induced. She is placed in a dorsolithotomy position using Kristofer stirrups. Her abdomen perineum and vagina were prepared and draped in sterile fashion a bladder was drained with a red rubber catheter. Sponge stick was placed in the vagina for manipulation of the uterus. An incision was made at the umbilicus natural umbilical defect was identified and dilated with Angelita clamp allowing a blunt port to be placed. Laparoscopy confirmed appropriate placement. The abdomen was insufflated with CO2 gas. The uterus was elevated out of the pelvis and each tube was identified and followed out to its fimbriated end. Each tube was then cauterized at the mid isthmic portion moving back toward the uterine cornu with 5 successive bites. Photos were taken at the end of the case. There were no complications. At the end of the case is gas was allowed to escape. The scope and port were removed at the same time. The fascia at the umbilicus was closed with a 2-0 Vicryl stitch and skin closed with 4-0 undyed Vicryl stitch. All instruments were removed from the vagina. She is placed back in supine position. She was extubated in the OR and taken to recovery in stable co ndition.
--- NOTE | 2020-01-31 10:20 | Discharge Summary ---
Discharge Summary (SDC) - Discharge Final Diagnosis: Encounter for tubal ligation Date of Surgery: 01/31/20 Discharge Date: 01/31/20 Condition: Good Prescriptions: Oxycodone HCl/Acetaminophen [Percocet 5-325 mg Tablet] 1 tab PO Q4HP PRN #28 tablet PRN Reason: Ibuprofen [Motrin 800 mg Tablet] 800 mg PO Q8H PRN #30 tablet PRN Reason: Discharge Diet: Regular Discharge Activity: Pelvic Rest, Slowly Increase Activity Home Care Assistance: None Needed Report the Following to Your Physician Immediately: Fever over 101 Degrees
[2020-01-31] MEDS ORDERED: OXYCODONE-ACETAMINOPHEN 5-325 MG TABLET ONE (10:50)
[2020-01-31] MEDS ORDERED: ROCURONIUM BROMIDE INJ 50 MG/5 ML VIAL IV ONE (11:14)
[2020-01-31] MEDS ORDERED: SUCCINYLCHOLINE CHLORIDE INJ 200 MG/10 ML VIAL ONE (11:14)
[2020-01-31 12:46] VITALS: BP 136/87
== END 2020-01-31 11:50 | disposition home or self-care (01) ==
LOC: OROUT 07:09
PROVIDERS: ATTEND Obstetrics & Gynecology
DX: Z30.2 Encounter for sterilization (principal); I10 Essential (primary) hypertension; J45.909 Unspecified asthma, uncomplicated; Z14.1 Cystic fibrosis carrier
CPT/HCPCS: 36415; 85027; 81005; 81025; 80048; 00851; 58670; J2250; J3490 ×2; J1100; J1885; J3010; J0330; J2405; J2704; 851; J1170